=== PATIENT | male | born 2000 | race Caucasian/White ===

== ENCOUNTER 2024-12-02 23:36 | Emergency (ER) | payer OTHER ==
[~2024-12-02] VITALS: Ht 170.2 cm; Wt 77.1 kg
[2024-12-03 02:13] VITALS: BP 120/71; TEMP 98.1; O2SAT 99
== END 2024-12-03 02:13 | disposition home or self-care (01) ==
LOC: ER 23:50
DX: S01.81XA Laceration without foreign body of other part of head, initial encounter (principal); Z60.2 Problems related to living alone; Y04.0XXA Assault by unarmed brawl or fight, initial encounter; Y93.89 Activity, other specified; Y92.89 Other specified places as the place of occurrence of the external cause; Y99.9 Unspecified external cause status
CPT/HCPCS: 70450-TC; 70486-TC; 72125-TC